=== PATIENT | male | born 1995 | race Caucasian/White ===

== ENCOUNTER 2017-04-24 13:03 | Emergency (ER) | payer MEDICAID ==
--- NOTE | 2017-04-25 16:56 | ER Physician Documentation ---
DATE OF SERVICE: 04/24/2017 The patient was seen in the afternoon around 2:50 p.m.; that means 1445 p.m. HISTORY OF PRESENT ILLNESS: The patient came to the hospital because he has a slip and fall and he stretched his left hand and prevented hurting himself and that left elbow is hurting. Otherwise, the patient can move the elbows and everything. He does not have any other injury or any other medical problems. History of present illness is benign and negative. No evidence of any heart disease, lung disease, kidney disease, etc. Never admitted. At one time, there is a history of rhabdomyolysis quite sometime ago. The patient has minimal pain and ache in the left elbow, which is minimally swollen if any. There is no clinical evidence of fracture in the elbow or elbow area. The right side of the body and all other remainder of the body appears to be normal. This is the patient's first fall and he prevented it with his hand, with this pain to the left elbow. REVIEW OF SYSTEMS: Essentially benign and negative. No rheumatic fever, no valvular disease, no palpitation, no congenital heart disease, no prolonged QT interval, no torsades de pointes. No evidence of any permanent pacemaker, atrial fibrillation. SOCIAL HISTORY: Does not smoke, does not drink. ALLERGIES: Allergy to penicillin. PAST SURGICAL HISTORY: Otherwise benign and negative. PAST MEDICAL HISTORY: History of rhabdomyolysis. PHYSICAL EXAMINATION: VITAL SIGNS: ____ nurseCy did the temperature at 98.2, pulse 75, respirations 16, blood pressure 117/65, saturation 98%. Height of 5 feet 2 inches, weight 150 pounds. GENERAL: The patient appears to be awake, alert, oriented, not in any acute cardiorespiratory distress. Overall, general exam is benign and negative. NECK: No evidence of any meningeal signs. EXTREMITIES: No edema, no cyanosis. SKIN: No petechia. No ecchymosis. CHEST: Clear. Trachea being central, fairly good air entry in both lungs. EXTREMITIES: On examination of the left elbow, the left elbow could be completely stretched back and forth. I did that at least 7 to 8 times, has mild sprain in the left elbow area. Otherwise, there is no definite evidence of fracture. The epicondyles in the elbow area are all within normal limits. There is no hematoma. There is no cellulitis. There is no fracture. There is no evidence of any thrombophlebitis. Right side of the body appears to be normal. CHEST: Clear, resolved. There are no rales, rhonchi, or bronchial breathing. ABDOMEN: Soft, benign, negative. CENTRAL NERVOUS SYSTEM: Normal. CLINICAL IMPRESSION: 1. The patient has a history of rhabdomyolysis in the past. 2. Allergy to penicillin. 3. The current problem is sprain and slip and fall. Plan to take some Tylenol or ibuprofen 2 tablets 2-3 times a day as needed and some ice pack, initially and then hot pack down the road after 2 or 3 days and this should get better within a few days. If it does not get better, he will come back and then we will get the x-ray of that part to be done, but nothing acutely is seen. There is no definite evidence of any fracture. JOB# [id number]
== END 2017-04-24 15:42 | disposition home or self-care (01) ==
LOC: ER 13:03
DX: S53.402A Unspecified sprain of left elbow, initial encounter (principal); Z88.0 Allergy status to penicillin; W01.0XXA Fall on same level from slipping, tripping and stumbling without subsequent striking against object, initial encounter; Y93.89 Activity, other specified; Y92.89 Other specified places as the place of occurrence of the external cause; Y99.8 Other external cause status
CPT/HCPCS: Z7502